=== PATIENT | female | born 1985 | race African-American/Black ===

== ENCOUNTER 2018-09-05 20:48 | Emergency (ER) | payer OTHER ==
[~2018-09-05] VITALS: Ht 175.3 cm; Wt 89.0 kg
[~2018-09-05 20:48] MED LIST: ASPI-1158 PO; HUM10VIA8 SQ; KEPP500 PO; METO25TA6 PO
[2018-09-05 20:50] VITALS: BP 148/92
== END 2018-09-06 03:05 | disposition home or self-care (01) ==
LOC: ER 20:48
DX: Z53.21 Procedure and treatment not carried out due to patient leaving prior to being seen by health care provider (principal); R07.9 Chest pain, unspecified
CPT/HCPCS: 93005

== ENCOUNTER 2024-02-25 02:08 | Emergency (ER) | payer SELFPAY ==
[~2024-02-25] VITALS: Ht 175.3 cm; Wt 76.0 kg
[~2024-02-25 02:08] MED LIST changes: -ASPI-1158 PO; +ASPI-1406 PO
[2024-02-25 02:29] VITALS: O2SAT 100
[2024-02-25] MEDS: ACETAMINOPHEN 325MG TABLET PO ONE (04:26)
[2024-02-25] MEDS ORDERED: IBUP-2028 MT (05:51)
[2024-02-25 06:16] VITALS: BP 136/73; PULSE 81; RESP 17; TEMP 98.7
== END 2024-02-25 06:42 | disposition home or self-care (01) ==
LOC: ER 02:08
DX: S00.01XA Abrasion of scalp, initial encounter (principal); E11.9 Type 2 diabetes mellitus without complications; F12.90 Cannabis use, unspecified, uncomplicated; Y08.89XA Assault by other specified means, initial encounter; Y93.89 Activity, other specified; Y92.89 Other specified places as the place of occurrence of the external cause; Y99.8 Other external cause status
CPT/HCPCS: 99284

== ENCOUNTER 2025-06-20 01:34 | Emergency (ER) | payer MEDICAID ==
[~2025-06-20] VITALS: Ht 175.3 cm; Wt 91.0 kg
[~2025-06-20 01:34] MED LIST changes: +IBUP-2028 MT
[2025-06-20 01:37] VITALS: O2SAT 100
[2025-06-20 01:40] VITALS: BP 133/78; PULSE 70; RESP 18; TEMP 36.7; O2SAT 100
[2025-06-20 03:10] LABS: CREATININE 1.1 mg/dL (0.6-1.0); UREA NITROGEN BLOOD 6 mg/dL (9-23)
[2025-06-20 03:11] LABS: HCG SCREEN NEGATIVE
[2025-06-20 03:12] LABS: ASPARTATE AMINOTRANSFERASE 18 IU/L (<34); BILIRUBIN TOTAL 0.4 mg/dL (0.1-1.0); PROTEIN TOTAL 6.9 g/dL (6.0-8.3)
[2025-06-20 03:32] LABS: BASOPHILS % 0.3 % (0.0-2.0); EOSINOPHILS % 3.0 % (0.0-5.0); HEMATOCRIT. 40.3 % (36.0-48.0); HEMOGLOBIN. 12.9 g/dL (12.0-16.0); LYMPHOCYTES % 46.3 % (20.0-50.0); MEAN PLATELET VOLUME 10.5 fl (7.4-10.4); MONOCYTES % 6.6 % (2.0-8.0); NEUTROPHILS % 43.8 % (40.0-76.0); PLATELET 218 x1000/uL (130-400); RED BLOOD CELL COUNT 4.30 mill/uL (4.2-5.4); RED CELL DISTRIBUTION WIDTH 13.7 % (11.6-14.6)
== END 2025-06-20 04:25 | disposition home or self-care (01) ==
LOC: ER 01:34
DX: E11.649 Type 2 diabetes mellitus with hypoglycemia without coma (principal); F12.90 Cannabis use, unspecified, uncomplicated
CPT/HCPCS: 36415; 80053; 82962; 84703; 85025; 99283